=== PATIENT | female | born 1945 | race Caucasian/White ===

== ENCOUNTER 2019-04-17 11:52 | Day surgery (SDC) | payer MEDICARE, OTHER ==
[2019-04-17] VITALS (10 sets, daily range): BP systolic 121–142; BP diastolic 53–74; PULSE 65–77; TEMP 98.5
[~2019-04-17] VITALS: Ht 167.6 cm; Wt 84.5 kg
[2019-04-17] MEDS ORDERED: NORVASC 10MG10 MG PO (12:38)
[2019-04-17] MEDS ORDERED: ZOCOR 10MG10 MG PO (12:39)
[2019-04-17] MEDS ORDERED: ALTACE 10MG TAB10 MG PO (12:39)
[2019-04-17] MEDS ORDERED: NORCO 325 MG-7.1 TAB PO (12:40)
[2019-04-17] MEDS ORDERED: HCTZ 25MG TAB25 MG PO (12:40)
[2019-04-17] MEDS ORDERED: XANAX .25M0.25 MG/TA PO (12:41)
[2019-04-17 13:23] LABS: HEMATOCRIT 42.4 % (37.0-47.0); HEMOGLOBIN 13.8 g/dl (12.5-16.0); MEAN CELL VOLUME 85 fl (80.0-100.0); MEAN CORPUSCULAR HEMOGLOBIN 28 pg (27.0-31.0); MEAN CORPUSCULAR HGB CONC 33 g/dl (33.0-37.0); MEAN PLATELET VOLUME 9.3 fl (7.4-10.4); PLATELET COUNT 290 K/mm3 (130-400); RED BLOOD COUNT 5.02 M/mm3 (4.10-5.30); REDCELL DISTRIBUTION WIDTH-CV 12.2 % (11.5-14.5)
[2019-04-17 13:31] LABS: INR 0.9 (0.8-3.0); PROTHROMBIN TIME 10.8 SECONDS (9.7-12.8)
[2019-04-17 13:34] LABS: CALCIUM 9.6 mg/dL (8.4-10.2); CREATININE, serum 0.76 (0.52-1.25); POTASSIUM 3.8 mmol/L (3.4-5.0)
--- NOTE | 2019-04-17 14:35 | NUR ---
SEE [facility] FOR MEDICATION ADMINISTRATION TIMES AND INTRA/POST SEDATION ASSESSMENT/SCORE
--- NOTE | 2019-04-17 15:21 | NUR ---
REPORT TAKEN FROM LEROY VANEGAS IN [employer].
--- NOTE | 2019-04-17 16:24 | NUR ---
PT TOLERATED INTAKE WITH NO N/V.
--- NOTE | 2019-04-17 17:02 | NUR ---
Discharge instructions reviewed with pt/family. Pt/family voice understanding.
--- NOTE | 2019-04-17 18:00 | NUR ---
Pt was discharged via w/c to the care of spouse in private vehicle with discharged instructions in hand. IV was discontinued with catheter tip intact, no phlebitis or infiltration. Pt ambulated in and around the unit prior to discharge with no complications. Pt voided with no complications. Pt stated of overall body aches and took [place], 1 tab, prior to discharge from her own medication bottle. This RN encouraged pt to eat well prior to leaving town and going home to rest. Pt/spouse aware.
== END 2019-04-17 18:15 | disposition home or self-care (01) ==
LOC: COL.CAR 11:52
PROVIDERS: Internal Medicine Interventional Cardiology
DX: I25.10 Atherosclerotic heart disease of native coronary artery without angina pectoris (principal); R94.39 Abnormal result of other cardiovascular function study; I10 Essential (primary) hypertension; F41.9 Anxiety disorder, unspecified; I65.23 Occlusion and stenosis of bilateral carotid arteries; R55 Syncope and collapse; I87.1 Compression of vein; R60.0 Localized edema; Z91.81 History of falling; Z88.6 Allergy status to analgesic agent; Z88.8 Allergy status to other drugs, medicaments and biological substances; Z79.891 Long term (current) use of opiate analgesic; Z79.899 Other long term (current) drug therapy; Z86.73 Personal history of transient ischemic attack (TIA), and cerebral infarction without residual deficits
CPT/HCPCS: J1644; J2250; J3010